=== PATIENT | male | born 2000 | race Hispanic/Latino ===

== ENCOUNTER 2024-03-29 08:27 | Emergency (ER) | payer SELFPAY ==
[~2024-03-29] VITALS: Ht 167.6 cm; Wt 68.0 kg
[2024-03-29 08:32] VITALS: TEMP 98.3
[2024-03-29 08:54] LABS: BASOPHILS # (AUTO) 0.03 K/uL (0.00-0.20); BASOPHILS % (AUTO) 0.3 % (0.0-5.0); EOSINOPHILS # (AUTO) 0.05 K/uL (0.00-0.70); EOSINOPHILS % (AUTO) 0.5 % (0.0-8.0); HEMATOCRIT 46.7 % (42-54); IMMATURE GRANULOCYTE ABSOLUTE 0.05 K/uL (0-1); LYMPHOCYTES # (AUTO) 1.9 K/uL (1.0-4.8); LYMPHOCYTES % (AUTO) 19.8 % (21.0-51.0); MEAN CORPUSCULAR HEMOGLOBIN 30.5 pg (27.0-33.0); MEAN CORPUSCULAR HGB CONC 34.3 g/dL (32.0-36.0); MONOCYTES # (AUTO) 0.5 K/uL (0.1-1.0); MONOCYTES % (AUTO) 5.7 % (3.0-13.0); NEUTROPHILS # (AUTO) 6.8 K/uL (1.8-7.7); NEUTROPHILS % (AUTO) 73.2 % (40.0-77.0); PLATELET COUNT (AUTO) 263 K/uL (130-400); RED BLOOD CELL COUNT(AUTO) 5.25 MIL/uL (4.50-6.20); RED CELL DISTRIBUTION WIDTH 12.9 % (11.0-15.5); WHITE BLOOD COUNT (AUTO) 9.3 K/uL (4.8-10.8)
[2024-03-29 09:01] LABS: CREATININE 0.9 mg/dL (0.5-1.3); POTASSIUM 3.7 mmol/L (3.5-5.1)
[2024-03-29] MEDS: IpraTROPium/alBUTERol SULFATE 3 ML SOLUTION IH ONE (10:13)
[2024-03-29 10:14] VITALS: PULSE 74; RESP 18
[2024-03-29 10:39] LABS: MAGNESIUM 2.1 mg/dL (1.80-2.40); THYROID STIMULATING HORMONE 1.51 uIU/mL (0.36-3.74)
[2024-03-29] MEDS: 0.9%NACL 1000ML 1,000 ML IV SCH (11:01)
[2024-03-29 11:20] LABS: APPEARANCE,URINE CLEAR (CLEAR); BILIRUBIN,URINE NEGATIVE (NEGATIVE); COLOR,URINE LIGHT-YELLOW (YELLOW); GLUCOSE, URINE (UA) NEGATIVE (NEGATIVE); KETONES,URINE NEGATIVE (NEGATIVE); LEUKOCYTE ESTERASE ,URINE NEGATIVE Leu/uL (NEGATIVE); NITRATE,URINE NEGATIVE (NEGATIVE); OCCULT BLOOD,URINE NEGATIVE (NEGATIVE); PH,URINE 6.5 (5.0-8.0); PROTEIN,URINE NEGATIVE (NEGATIVE); UROBILINOGEN,URINE 0.2 mg/dL (0.2-1.0)
[2024-03-29 11:24] LABS: ADD UA MICROSCOPIC NO
[2024-03-29 11:26] LABS: AMPHET/METH SCREEN,URINE NEGATIVE (NEGATIVE); BARBITURATE SCREEN, URINE NEGATIVE (NEGATIVE); BENZODIAZEPINES SCREEN,URINE NEGATIVE (NEGATIVE); CANNABINOID SCREEN,URINE POSITIVE (NEGATIVE); COCAINE SCREEN,URINE NEGATIVE (NEGATIVE); OPIATE SCREEN,URINE NEGATIVE (NEGATIVE); PHENCYCLIDINE SCREEN,URINE NEGATIVE (NEGATIVE)
[2024-03-29] MEDS: ketOROlac 60 MG VIAL (30MG/ML) IM ONE (12:16)
[2024-03-29] MEDS: hydrOXYzine 50MG VIAL 50 MG/ML VIAL IM SCH (12:17)
[2024-03-29 14:36] VITALS: BP 133/92; PULSE 84; RESP 17; O2SAT 100
[2024-03-29] MEDS ORDERED: HYDR-3421 PO (14:44)
[2024-03-29] MEDS ORDERED: IBUP-2070 PO (14:44)
[2024-03-29] MEDS ORDERED: ALBUHFA IH (14:44)
== END 2024-03-29 15:18 | disposition home or self-care (01) ==
LOC: EDH 08:27
DX: J45.901 Unspecified asthma with (acute) exacerbation (principal); F41.9 Anxiety disorder, unspecified; M79.18 Myalgia, other site
CPT/HCPCS: 99285; 96360; 71046; 71045; 84443; 82550; 83735; 84484 ×2; 80048; 80305; 85025; 36415; 93005 ×2; 94640; 96372 ×2; 81003; J3410; J7030; J1885